=== PATIENT | male | born 2000 | race African-American/Black ===

== ENCOUNTER 2023-07-07 13:52 | Emergency (ER) | payer OTHER, SELFPAY ==
[2023-07-07 14:36] LABS: Urine Bacteria None Seen /HPF (<20); Urine Bilirubin NEGATIVE (Negative); Urine Blood Trace (Negative); Urine Clarity Clear (Clear); Urine Color Yellow (Yellow); Urine Glucose NEGATIVE (Negative); Urine Mucus Slight /HPF (None Seen); Urine Protein TRACE (Negative); Urine RBC <5 /HPF (None Seen); Urine Urobilinogen Normal (Normal)
--- NOTE | 2023-07-07 14:55 | ER ---
Nurse's Notes [facility] Name: Diane Jimenez Age: 23 yrs Sex: Male : 2000 Arrival Date: 07/07/2023 Time: 13:52 Bed 12 Private MD: Diagnosis: Unspecified sexually transmitted disease Presentation: 07/07 14:02 Chief complaint: Patient states: Was exposed to an STD and wants to get checked. no cm10 symptoms. Coronavirus screen: Vaccine status: Patient reports being unvaccinated. Client denies travel out of the [place] in the last 14 days. Ebola Screen: Patient denies travel to an Ebola-affected area in the 21 days before illness onset. No symptoms or risks identified at this time. Initial Sepsis Screen: Does the patient meet any 2 criteria? No. Patient's initial sepsis screen is negative. Does the patient have a suspected source of infection? No. Patient's initial sepsis screen is negative. Risk Assessment: Do you want to hurt yourself or someone else? Patient reports no desire to harm self or others. Onset of symptoms was July 07, 2023. 14:02 Method Of Arrival: Ambulatory cm10 14:02 Acuity: EDDIE 4 cm10 Triage Assessment: 14:07 General: Appears in no apparent distress. Behavior is calm, cooperative. tl4 Historical: - Allergies: 14:01 No Known Allergies; cm10 - Home Meds: 14:01 None [Active]; cm10 - PMHx: 14:01 None; cm10 - PSHx: 14:01 None; cm10 - Immunization history:: Adult Immunizations unknown. - Social history:: Smoking status: unknown Patient uses street drugs, marijuana. Screenin:07 [facility] ED Fall Risk Assessment (Adult) History of falling in the last 3 months, tl4 including since admission No falls in past 3 months (0 pts) Confusion or Disorientation No (0 pts) Intoxicated or Sedated No (0 pts) Impaired Gait No (0 pts) Mobility Assist Device Used No (0 pt) Altered Elimination No (0 pt) Score/Fall Risk Level 0 - 2 = Low Risk. 14:07 Abuse screen: Denies threats or abuse. Denies injuries from another. Nutritional tl4 screening: No deficits noted. Tuberculosis screening: No symptoms or risk factors identified. Assessment: 14:06 Reassessment: Patient appears in no apparent distress at this time. No changes from tl4 previously documented assessment. Patient and/or family updated on plan of care and expected duration. Pain level reassessed. Pain: Denies pain. Vital Signs: 14:02 BP 137 / 78; Pulse 94; Resp 18; Temp 98.6; Pulse Ox 100% ; Weight 69.85 kg; Height 5 cm10 ft. 7 in. ; Pain 0/10; 15:30 BP 110 / 64; Pulse 72; Resp 16; Pulse Ox 99% ; Pain 0/10; tl4 14:02 Body Mass Index 24.12 (69.85 kg, 170.18 cm) cm10 14:02 Pain Scale: Adult cm10 15:30 Pain Scale: Adult tl4 ED Course: 13:57 Patient arrived in ED. im 13:58 Daily Moore [facility]C [facility]. kb 13:58 Brian Kramer MD is Attending Physician. kb 14:02 Triage completed. cm10 14:02 Arm band placed on Patient placed in an exam room, on a stretcher. cm10 14:06 Amor Boyd is Primary Nurse. tl4 14:07 No provider procedures requiring assistance completed. tl4 14:08 Patient has correct armband on for positive identification. Bed in low position. Call tl4 light in reach. Side rails up X 1. Provided Education on: ED process. 14:21 GC (Nik/Chl) Probe URINE Sent. tl4 15:36 Patient did not have IV access during this emergency room visit. tl4 Administered Medications: 15:05 Drug: Rocephin (cefTRIAXone) IM 500 mg IM once Route: IM; Site: left ventrogluteal; tl4 15:34 Follow up: Response: No adverse reaction tl4 15:07 Drug: AZITHromycin PO 1 grams PO once Route: PO; tl4 15:35 Follow up: Response: No adverse reaction tl4 15:08 Drug: metroNIDAZOLE PO 2 grams PO once Route: PO; tl4 15:35 Follow up: Response: No adverse reaction tl4 Medication: 14:08 VIS not applicable for this client. tl4 Outcome: 14:54 Discharge ordered by . kb 15:35 Discharged to home ambulatory, tl4 15:35 Condition: good 15:35 Discharge instructions given to patient, Instructed on discharge instructions, follow up and referral plans. safe sex practices, Demonstrated understanding of instructions, follow-up care, 15:37 Patient left the ED. tl4 Signatures: Daily Moore FNP-C FNP-Melany Shane Clarissa, RN RN cm10 Amor Boyd tl4
--- NOTE | 2023-07-07 14:55 | EDPHYS ---
Physician Documentation [facility] Name: Diane Jimenez Age: 23 yrs Sex: Male : 2000 Arrival Date: 07/07/2023 Time: 13:52 Bed 12 Private MD: ED Physician Brian Kramer HPI: 07/07 14:57 This 23 yrs old Black Male presents to ER via Ambulatory with complaints of STD kb Exposure. 14:58 Patient is a 23-year-old male with no medical history who presents for possible STI. kb States one of his sexual partners called and told him she was positive for trichomonas so he needed to be tested and treated. Patient denies any symptoms. Historical: - Allergies: 14:01 No Known Allergies; cm10 - Home Meds: 14:01 None [Active]; cm10 - PMHx: 14:01 None; cm10 - PSHx: 14:01 None; cm10 - Immunization history:: Adult Immunizations unknown. - Social history:: Smoking status: unknown Patient uses street drugs, marijuana. ROS: 14:57 Constitutional: Negative for fever, chills, and weight loss, kb 14:57 All other systems are negative, Exam: 14:57 Constitutional: This is a well developed, well nourished patient who is awake, alert, kb and in no acute distress. Head/Face: Normocephalic, atraumatic. ENT: Moist Mucous membranes Respiratory: Respirations even and unlabored. No increased work of breathing. Talking in full sentences Abdomen/GI: Soft, non-tender. No distention Skin: Warm, dry with normal turgor. Normal color. MS/ Extremity: Pulses equal, no cyanosis. Neurovascular intact. Full, normal range of motion. Neuro: Awake and alert, GCS 15, oriented to person, place, time, and situation. Moves all extremities. Normal gait. Vital Signs: 14:02 BP 137 / 78; Pulse 94; Resp 18; Temp 98.6; Pulse Ox 100% ; Weight 69.85 kg; Height 5 cm10 ft. 7 in. ; Pain 0/10; 15:30 BP 110 / 64; Pulse 72; Resp 16; Pulse Ox 99% ; Pain 0/10; tl4 14:02 Body Mass Index 24.12 (69.85 kg, 170.18 cm) cm10 14:02 Pain Scale: Adult cm10 15:30 Pain Scale: Adult tl4 MDM: 13:58 Patient medically screened. kb 14:58 Differential diagnosis: Trichomonas, gonorrhea, chlamydia. Data reviewed: vital signs, kb nurses notes. Counseling: I had a detailed discussion with the patient and/or guardian regarding the historical points, exam findings, and any diagnostic results supporting the discharge/admit diagnosis, the need for outpatient follow up, a family practitioner, to return to the emergency department if symptoms worsen or persist or if there are any questions or concerns that arise at home. 07/07 14:01 Order name: Urinalysis w/ reflexes; Complete Time: 14:44 kb 07/07 14:01 Order name: GC (Nik/Chl) Probe URINE kb 07/07 14:42 Order name: Urine Culture EDMS Administered Medications: 15:05 Drug: Rocephin (cefTRIAXone) IM 500 mg IM once Route: IM; Site: left ventrogluteal; tl4 15:34 Follow up: Response: No adverse reaction tl4 15:07 Drug: AZITHromycin PO 1 grams PO once Route: PO; tl4 15:35 Follow up: Response: No adverse reaction tl4 15:08 Drug: metroNIDAZOLE PO 2 grams PO once Route: PO; tl4 15:35 Follow up: Response: No adverse reaction tl4 Disposition Summary: 07/07/23 14:54 Discharge Ordered Notes: Location: Home kb Condition: Stable kb Diagnosis - Unspecified sexually transmitted disease kb Followup: kb - With: Emergency Department - When: As needed - Reason: Worsening of condition Followup: kb - With: Private Physician - When: 2 - 3 days - Reason: Recheck today's complaints, Continuance of care, Re-evaluation by your physician Discharge Instructions: - Discharge Summary Sheet kb - Trichomoniasis kb - Preventing Sexually Transmitted Infections, Adult kb Forms: - Medication Reconciliation Form kb - Thank You Letter kb - Antibiotic Education kb - Prescription Opioid Use kb - Patient Portal Instructions kb - Leadership Thank You Letter kb Signatures: Dispatcher [employer] Daily Ware FNP-C FNP-Ana Medrano RN RN cm10 LogdaAmor diaz tl4
[2023-07-07] MEDS ORDERED: LIDOCAINE 1% MPF 5 ML VIAL ONE (15:14)
[2023-07-07] MEDS ORDERED: metroNIDAZOLE 500 MG TABLET ONE (15:14)
[2023-07-07] MEDS ORDERED: CEFTRIAXONE 500 MG/VIAL ONE (15:14)
[2023-07-07] MEDS ORDERED: AZITHROMYCIN 250 MG TAB ONE (15:14)
[2023-07-07 17:25] VITALS: BP 110/64; TEMP 98.6; O2SAT 99
== END 2023-07-07 15:37 | disposition home or self-care (01) ==
LOC: ER 13:52
DX: A64 Unspecified sexually transmitted disease (principal)
CPT/HCPCS: 81001; 87086; 87088; 87490; 87590; J2001